=== PATIENT | male | born 1950 | race Caucasian/White ===

== ENCOUNTER 2021-07-23 15:00 | Outpatient (CLI) | payer MEDICARE | END 2021-07-23 15:01 | disposition home or self-care (01) | LOC: CSHMRI 15:00 | PROVIDERS: ATTEND Podiatrist | DX: L98.8 Other specified disorders of the skin and subcutaneous tissue (principal); L02.612 Cutaneous abscess of left foot ==

== ENCOUNTER 2021-10-03 14:17 | Outpatient (CLI) | payer MEDICARE | END 2021-10-03 14:18 | disposition home or self-care (01) | LOC: CSHWCC 14:17 | PROVIDERS: ATTEND Nurse Practitioner Family | DX: T81.89XD Other complications of procedures, not elsewhere classified, subsequent encounter (principal) | CPT/HCPCS: 97139; G0463; 99213 ==

== ENCOUNTER 2021-10-17 14:21 | Outpatient (CLI) | payer MEDICARE | END 2021-10-17 14:22 | disposition home or self-care (01) | LOC: CSHWCC 14:21 | PROVIDERS: ATTEND Nurse Practitioner Family | DX: T81.89XD Other complications of procedures, not elsewhere classified, subsequent encounter (principal) | CPT/HCPCS: 97139; G0463; 99213 ==

== ENCOUNTER 2023-12-24 12:40 | Outpatient (CLI) | payer MEDICARE, OTHER | END 2023-12-24 12:41 | disposition home or self-care (01) | LOC: CSHCP 12:40 | PROVIDERS: ATTEND Specialist | DX: R06.02 Shortness of breath (principal) | CPT/HCPCS: 71046; 94060; 94726; 94729; 94760 ==